=== PATIENT | male | born 1960 | race Caucasian/White ===

== ENCOUNTER 2016-03-26 09:02 | Outpatient (CLI) | payer BC | END 2016-03-26 09:03 | disposition home or self-care (01) | DX: Z79.01 Long term (current) use of anticoagulants (principal) ==

== ENCOUNTER 2016-05-02 11:39 | Outpatient (CLI) | payer BC | END 2016-05-02 11:40 | disposition home or self-care (01) | LOC: LAB.F 11:39 | PROVIDERS: ATTEND Physician Assistant Medical | DX: Z79.01 Long term (current) use of anticoagulants (principal) | CPT/HCPCS: 85610 ==

== ENCOUNTER 2016-07-23 19:33 | Outpatient (CLI) | payer BC | END 2016-07-23 19:34 | disposition home or self-care (01) | DX: R60.0 Localized edema (principal); M89.9 Disorder of bone, unspecified ==

== ENCOUNTER 2016-10-03 09:47 | Outpatient (CLI) | payer BC | END 2016-10-03 09:48 | disposition home or self-care (01) | LOC: LAB.F 09:47 | PROVIDERS: ATTEND Physician Assistant Medical | DX: Z79.01 Long term (current) use of anticoagulants (principal) | CPT/HCPCS: 85610 ==

== ENCOUNTER 2016-11-06 13:59 | Outpatient (CLI) | payer BC | END 2016-11-06 14:00 | disposition home or self-care (01) | LOC: LAB.F 13:59 | PROVIDERS: ATTEND Physician Assistant Medical | DX: Z79.01 Long term (current) use of anticoagulants (principal) | CPT/HCPCS: 85610 ==

== ENCOUNTER 2016-12-23 07:57 | Outpatient (CLI) | payer BC | END 2016-12-23 07:58 | disposition home or self-care (01) | LOC: LAB.F 07:57 | PROVIDERS: ATTEND Physician Assistant Medical | DX: Z79.01 Long term (current) use of anticoagulants (principal) | CPT/HCPCS: 85610 ==

== ENCOUNTER 2017-01-02 08:26 | Outpatient (CLI) | payer BC | END 2017-01-02 08:27 | disposition home or self-care (01) | LOC: LAB.F 08:26 | PROVIDERS: ATTEND Physician Assistant Medical | DX: Z79.01 Long term (current) use of anticoagulants (principal) | CPT/HCPCS: 85610 ==

== ENCOUNTER 2017-02-26 10:20 | Outpatient (CLI) | payer BC | END 2017-02-26 10:21 | disposition home or self-care (01) | LOC: LAB.F 10:20 | PROVIDERS: ATTEND Physician Assistant Medical | DX: Z79.01 Long term (current) use of anticoagulants (principal) | CPT/HCPCS: 85610 ==

== ENCOUNTER 2017-03-27 08:42 | Outpatient (CLI) | payer SELFPAY | END 2017-03-27 08:43 | disposition home or self-care (01) | LOC: LAB.F 08:42 | PROVIDERS: ATTEND Physician Assistant Medical | DX: I48.91 Unspecified atrial fibrillation (principal) | CPT/HCPCS: 85610 ==

== ENCOUNTER 2017-05-06 09:15 | Outpatient (CLI) | payer OTHER | END 2017-05-06 09:16 | disposition home or self-care (01) | LOC: LAB.F 09:15 | PROVIDERS: ATTEND Physician Assistant Medical | DX: I48.91 Unspecified atrial fibrillation (principal) | CPT/HCPCS: 85610 ==

== ENCOUNTER 2017-06-09 08:21 | Outpatient (CLI) | payer OTHER | END 2017-06-09 08:22 | disposition home or self-care (01) | LOC: LAB.F 08:21 | PROVIDERS: ATTEND Physician Assistant Medical | DX: I48.91 Unspecified atrial fibrillation (principal) | CPT/HCPCS: 85610 ==

== ENCOUNTER 2017-07-14 07:17 | Outpatient (CLI) | payer OTHER | END 2017-07-14 07:18 | disposition home or self-care (01) | LOC: LAB.F 07:17 | PROVIDERS: ATTEND Physician Assistant Medical | DX: I48.91 Unspecified atrial fibrillation (principal) | CPT/HCPCS: 85610 ==

== ENCOUNTER 2017-07-24 07:40 | Outpatient (CLI) | payer OTHER | END 2017-07-24 07:41 | disposition home or self-care (01) | LOC: LAB.F 07:40 | PROVIDERS: ATTEND Physician Assistant Medical | DX: I48.91 Unspecified atrial fibrillation (principal) | CPT/HCPCS: 85610 ==

== ENCOUNTER 2017-08-07 09:34 | Outpatient (CLI) | payer OTHER | END 2017-08-07 09:35 | disposition home or self-care (01) | LOC: LAB.F 09:34 | PROVIDERS: ATTEND Physician Assistant Medical | DX: I48.91 Unspecified atrial fibrillation (principal) | CPT/HCPCS: 85610 ==

== ENCOUNTER 2017-09-16 07:08 | Outpatient (CLI) | payer OTHER | END 2017-09-16 07:09 | disposition home or self-care (01) | LOC: LAB.F 07:08 | PROVIDERS: ATTEND Physician Assistant Medical | DX: I48.91 Unspecified atrial fibrillation (principal) | CPT/HCPCS: 85610 ==

== ENCOUNTER 2017-10-16 08:19 | Outpatient (CLI) | payer OTHER | END 2017-10-16 08:20 | disposition home or self-care (01) | LOC: LAB.F 08:19 | PROVIDERS: ATTEND Physician Assistant Medical | DX: I48.91 Unspecified atrial fibrillation (principal) | CPT/HCPCS: 85610 ==

== ENCOUNTER 2017-11-18 07:37 | Outpatient (CLI) | payer OTHER | END 2017-11-18 07:38 | disposition home or self-care (01) | LOC: LAB.F 07:37 | PROVIDERS: ATTEND Physician Assistant Medical | DX: I48.91 Unspecified atrial fibrillation (principal) | CPT/HCPCS: 85610 ==

== ENCOUNTER 2017-12-23 10:39 | Outpatient (CLI) | payer OTHER, MEDICARE | END 2017-12-23 10:40 | disposition home or self-care (01) | LOC: LAB.F 10:39 | PROVIDERS: ATTEND Physician Assistant Medical | DX: I48.91 Unspecified atrial fibrillation (principal) | CPT/HCPCS: 85610 ==

== ENCOUNTER 2018-02-03 07:07 | Outpatient (CLI) | payer OTHER, MEDICARE ==
[2018-02-03 10:56] LABS: INR 2.6 (0.8-1.2); PT - PROTHROMBIN TIME 28.5 secs (9.9-12.6)
== END 2018-02-03 07:08 | disposition home or self-care (01) ==
LOC: LAB.F 07:07
PROVIDERS: ATTEND Physician Assistant Medical
DX: Z79.01 Long term (current) use of anticoagulants (principal)
CPT/HCPCS: 36415; 85610

== ENCOUNTER 2018-03-05 08:36 | Outpatient (CLI) | payer MEDICARE | END 2018-03-05 08:37 | disposition home or self-care (01) | LOC: LAB.F 08:36 | PROVIDERS: ATTEND Physician Assistant Medical | DX: I48.91 Unspecified atrial fibrillation (principal) | CPT/HCPCS: 85610 ==

== ENCOUNTER 2018-04-02 07:30 | Outpatient (CLI) | payer MEDICARE | END 2018-04-02 07:31 | disposition home or self-care (01) | LOC: LAB.F 07:30 | PROVIDERS: ATTEND Physician Assistant Medical | DX: I48.91 Unspecified atrial fibrillation (principal) | CPT/HCPCS: 85610 ==

== ENCOUNTER 2018-05-07 08:58 | Outpatient (CLI) | payer MEDICARE | END 2018-05-07 08:59 | disposition home or self-care (01) | LOC: LAB.F 08:58 | PROVIDERS: ATTEND Physician Assistant Medical | DX: I48.91 Unspecified atrial fibrillation (principal) | CPT/HCPCS: 85610 ==

== ENCOUNTER 2018-06-02 07:36 | Outpatient (CLI) | payer MEDICARE | END 2018-06-02 07:37 | disposition home or self-care (01) | LOC: LAB.F 07:36 | PROVIDERS: ATTEND Physician Assistant Medical | DX: I48.91 Unspecified atrial fibrillation (principal) | CPT/HCPCS: 85610 ==

== ENCOUNTER 2018-07-07 07:36 | Outpatient (CLI) | payer MEDICARE | END 2018-07-07 07:37 | disposition home or self-care (01) | LOC: LAB.F 07:36 | PROVIDERS: ATTEND Physician Assistant Medical | DX: I48.91 Unspecified atrial fibrillation (principal) | CPT/HCPCS: 85610 ==

== ENCOUNTER 2018-08-11 09:30 | Outpatient (CLI) | payer MEDICARE | END 2018-08-11 09:31 | disposition home or self-care (01) | LOC: LAB.F 09:30 | PROVIDERS: ATTEND Physician Assistant Medical | DX: I48.91 Unspecified atrial fibrillation (principal) | CPT/HCPCS: 85610 ==

== ENCOUNTER 2018-09-23 12:32 | Outpatient (CLI) | payer MEDICARE | END 2018-09-23 12:33 | disposition home or self-care (01) | LOC: LAB 12:32 | PROVIDERS: ATTEND Physician Assistant Medical | DX: I48.91 Unspecified atrial fibrillation (principal) | CPT/HCPCS: 85610 ==

== ENCOUNTER 2018-10-28 16:21 | Outpatient (CLI) | payer MEDICARE | END 2018-10-28 16:22 | disposition home or self-care (01) | LOC: LAB 16:21 | PROVIDERS: ATTEND Physician Assistant Medical | DX: I48.91 Unspecified atrial fibrillation (principal) | CPT/HCPCS: 85610 ==

== ENCOUNTER 2018-11-26 12:08 | Outpatient (CLI) | payer MEDICARE | END 2018-11-26 12:09 | disposition home or self-care (01) | LOC: LAB 12:08 | PROVIDERS: ATTEND Physician Assistant Medical | DX: I48.91 Unspecified atrial fibrillation (principal) | CPT/HCPCS: 85610 ==

== ENCOUNTER 2018-12-29 12:33 | Outpatient (CLI) | payer MEDICARE | END 2018-12-29 12:34 | disposition home or self-care (01) | LOC: LAB 12:33 | PROVIDERS: ATTEND Physician Assistant Medical | DX: I48.91 Unspecified atrial fibrillation (principal) | CPT/HCPCS: 85610 ==

== ENCOUNTER 2019-02-01 11:46 | Outpatient (CLI) | payer MEDICARE | END 2019-02-01 11:47 | disposition home or self-care (01) | LOC: LAB 11:46 | PROVIDERS: ATTEND Physician Assistant Medical | DX: I48.91 Unspecified atrial fibrillation (principal) | CPT/HCPCS: 85610 ==

== ENCOUNTER 2019-02-25 14:59 | Outpatient (CLI) | payer MEDICARE ==
[2019-02-25 15:25] LABS: ALBUMIN 4.5 g/dL (3.2-5.5); ALBUMIN/GLOBULIN RATIO 1.3 (1.0-2.2); BILIRUBIN,TOTAL 0.7 mg/dL (0.2-1.0); CREATININE 1.2 mg/dL (0.6-1.2); TOTAL PROTEIN 8.1 g/dL (6.7-8.2)
[2019-02-25 15:54] LABS: BASOPHILS % (AUTO) 0.2 %; EOSINOPHILS % (AUTO) 0.1 %; HGB - HEMOGLOBIN 15.7 g/dL (14.0-18.0); LYMPHOCYTES # (AUTO) 0.9 10^3/uL (1.5-3.5); LYMPHOCYTES % (AUTO) 10.2 %; MEAN CORPUSCULAR HEMOGLOBIN 28.8 pg (27.0-31.0); MEAN CORPUSCULAR HGB CONC 33.3 g/dL (32.0-36.0); MEAN CORPUSCULAR VOLUME 86.4 fL (80.0-94.0); MEAN PLATELET VOLUME 10.4 fL (7.4-11.4); MONOCYTES # (AUTO) 0.2 10^3/uL (0.0-1.0); MONOCYTES % (AUTO) 1.7 %; NEUTROPHILS % (AUTO) 87.4 %; PLT - PLATELET COUNT 309 10^3/uL (130-450); RED BLOOD COUNT 5.45 10^6/uL (4.70-6.10); RED CELL DISTRIBUTION WIDTH 13.6 % (12.0-15.0); WHITE BLOOD COUNT 9.2 x10^3/uL (4.8-10.8)
[2019-02-25 15:57] LABS: INR 2.3 (0.8-1.2); PT - PROTHROMBIN TIME 24.7 secs (9.9-12.6)
== END 2019-02-25 15:00 | disposition home or self-care (01) ==
LOC: LAB 14:59
PROVIDERS: ATTEND Physician Assistant Medical
DX: I42.9 Cardiomyopathy, unspecified (principal); I48.91 Unspecified atrial fibrillation; Z79.01 Long term (current) use of anticoagulants
CPT/HCPCS: 36415; 80053; 85025; 85610

== ENCOUNTER 2019-03-26 18:47 | Outpatient (CLI) | payer MEDICARE | END 2019-03-26 18:48 | disposition home or self-care (01) | LOC: LAB 18:47 | PROVIDERS: ATTEND Physician Assistant Medical | DX: I48.91 Unspecified atrial fibrillation (principal) | CPT/HCPCS: 85610 ==

== ENCOUNTER 2019-05-31 07:21 | Outpatient (CLI) | payer MEDICARE | END 2019-05-31 07:22 | disposition home or self-care (01) | LOC: LAB 07:21 | PROVIDERS: ATTEND Physician Assistant Medical | DX: I48.91 Unspecified atrial fibrillation (principal) | CPT/HCPCS: 85610 ==

== ENCOUNTER 2019-06-13 10:53 | Outpatient (CLI) | payer MEDICARE | END 2019-06-13 10:54 | disposition home or self-care (01) | LOC: LAB 10:53 | PROVIDERS: ATTEND Physician Assistant Medical | DX: I48.91 Unspecified atrial fibrillation (principal) | CPT/HCPCS: 85610 ==

== ENCOUNTER 2020-03-14 16:38 | Outpatient (CLI) | payer MEDICARE | END 2020-03-14 16:39 | disposition home or self-care (01) | LOC: COV 16:38 | PROVIDERS: ATTEND Family Medicine | DX: R05 Cough (principal); R07.0 Pain in throat; Z20.828 Contact with and (suspected) exposure to other viral communicable diseases ==